=== PATIENT | female | born 1985 | race Caucasian/White ===

== ENCOUNTER 2018-05-23 22:45 | Emergency (ER) | payer MEDICAID ==
[~2018-05-23] VITALS: Ht 160 cm; Wt 55.3 kg
[2018-05-23 22:50] VITALS: BP_SYST 135
[2018-05-23] MEDS ORDERED: NACL 0.9% 1,000 ML IV ONE (22:50)
[2018-05-23] MEDS ORDERED: MORPHINE 4 MG/ML INJ. SYRINGE IVP ONE (23:00)
[2018-05-23] MEDS ORDERED: ONDANSETRON HCL 4 MG/2 ML VIAL IVP ONE (23:00)
[2018-05-23 23:14] LABS: BILIRUBIN,URINE NEGATIVE (NEGATIVE); BLOOD, URINE NEGATIVE (NEGATIVE); CLARITY/URINE HAZY (CLEAR); COLOR,URINE YELLOW (YELLOW); GLUCOSE,URINE NEGATIVE (NEGATIVE); KETONES,URINE NEGATIVE (NEGATIVE); LEUKOCYTE ESTERASE ,URINE NEGATIVE (NEGATIVE); NITRITE, URINE NEGATIVE (NEGATIVE); PH,URINE 8.5 (5.0-8.0); PROTEIN URINE NEGATIVE (NEGATIVE)
[2018-05-23 23:49] LABS: BASOPHILS % (AUTO) 0.3 % (0.0-2.0); EOSINOPHILS # (AUTO) 0.1 K/uL (0.0-0.4); EOSINOPHILS % (AUTO) 0.8 % (0.0-4.0); HEMATOCRIT 37.1 % (36-48); HEMOGLOBIN 11.9 g/dL (12.0-16.0); LYMPHOCYTES # (AUTO) 1.7 K/uL (1.0-5.5); LYMPHOCYTES % (AUTO) 13.9 % (20.5-51.5); MEAN CORPUSCULAR HEMOGLOBIN 26 pg (27-31); MEAN CORPUSCULAR HGB CONC 32 % (32-36); MEAN CORPUSCULAR VOLUME 81 fL (79.0-98.0); MONOCYTES # (AUTO) 0.9 K/uL (0.0-1.0); MONOCYTES % (AUTO) 7.6 % (1.7-9.3); NEUTROPHILS # (AUTO) 9.2 K/uL (1.8-7.7); NEUTROPHILS % (AUTO) 77.4 % (40.0-70.0); PLATELET COUNT (AUTO) 243 K/uL (130-430); RED BLOOD CELL COUNT(AUTO) 4.58 MIL/uL (4.2-6.2); RED CELL DISTRIBUTION WIDTH 12.8 % (9.0-15.0); WHITE BLOOD COUNT (AUTO) 11.9 K/uL (4.8-10.8)
[2018-05-24 00:01] LABS: PROTHROMBIN TIME 10.4 SECS (9.5-12.5)
[2018-05-24 00:15] LABS: ALBUMIN 3.6 g/dL (3.4-4.8); CREATININE 0.6 mg/dL (0.55-1.30); POTASSIUM 3.8 mmol/L (3.5-5.1); TOTAL BILIRUBIN 0.3 mg/dL (0.0-1.0)
[2018-05-24 00:28] VITALS: BP_SYST 135
[2018-05-24 00:33] LABS: CALCIUM 8.8 mg/dL (8.4-11.0)
== END 2018-05-24 00:27 | disposition home or self-care (01) ==
LOC: SED 22:45
DX: N83.202 Unspecified ovarian cyst, left side (principal); R10.2 Pelvic and perineal pain
CPT/HCPCS: 36415; 71045; 76830; 76857; 80053; 81003; 81025; 82150; 83605; 83690; 84702; 85025; 85610; 85730; 87040; 96374; 96375; 99284; J2270; J2405; J7030

== ENCOUNTER 2018-12-29 11:56 | Emergency (ER) | payer MEDICAID ==
[~2018-12-29] VITALS: Ht 160 cm; Wt 59.0 kg
[2018-12-29 12:19] VITALS: BP_SYST 116
[2018-12-29 13:41] LABS: BASOPHILS % (AUTO) 0.2 % (0.0-2.0); EOSINOPHILS # (AUTO) 0.2 K/uL (0.0-0.4); EOSINOPHILS % (AUTO) 1.6 % (0.0-4.0); HEMATOCRIT 37.8 % (36-48); HEMOGLOBIN 12.5 g/dL (12.0-16.0); LYMPHOCYTES % (AUTO) 9.9 % (20.5-51.5); MEAN CORPUSCULAR HEMOGLOBIN 29 pg (27-31); MEAN CORPUSCULAR HGB CONC 33 % (32-36); MEAN CORPUSCULAR VOLUME 88 fL (79.0-98.0); MONOCYTES # (AUTO) 0.7 K/uL (0.0-1.0); MONOCYTES % (AUTO) 6.3 % (1.7-9.3); NEUTROPHILS # (AUTO) 8.7 K/uL (1.8-7.7); PLATELET COUNT (AUTO) 230 K/uL (130-430); RED BLOOD CELL COUNT(AUTO) 4.32 MIL/uL (4.2-6.2); RED CELL DISTRIBUTION WIDTH 14.2 % (9.0-15.0); WHITE BLOOD COUNT (AUTO) 10.6 K/uL (4.8-10.8)
--- NOTE | 2018-12-29 14:03 | NUR ---
Patient to ER bed 6 to gown for evaluation. Side rails up. Report given to Nehemiah CHEW.
[2018-12-29 14:07] LABS: BILIRUBIN,URINE NEGATIVE (NEGATIVE); BLOOD, URINE NEGATIVE (NEGATIVE); CLARITY/URINE CLEAR (CLEAR); COLOR,URINE YELLOW (YELLOW); GLUCOSE,URINE NEGATIVE (NEGATIVE); KETONES,URINE NEGATIVE (NEGATIVE); LEUKOCYTE ESTERASE ,URINE NEGATIVE (NEGATIVE); NITRITE, URINE NEGATIVE (NEGATIVE); PROTEIN URINE NEGATIVE (NEGATIVE); UROBILINOGEN,URINE 0.2 (0.2-1.0)
[2018-12-29 14:08] LABS: CALCIUM 9.2 mg/dL (8.4-11.0); CREATININE 0.58 mg/dL (0.55-1.30); POTASSIUM 4.2 mmol/L (3.5-5.1)
[2018-12-29 14:16] LABS: TOTAL BILIRUBIN 0.5 mg/dL (0.0-1.0)
--- NOTE | 2018-12-29 14:20 | NUR ---
Pt presents to ED c/o pelvic pain.Pt has no acute distress noted denies constipation,nausea or vomiting.
--- NOTE | 2018-12-29 14:25 | NUR ---
ER at bedside examining patient.
--- NOTE | 2018-12-29 14:45 | NUR ---
Patient transported to radiology via ambulated, accompanied by US staff.
--- NOTE | 2018-12-29 14:59 | NUR ---
Returned from radiology, back to [facility].
--- NOTE | 2018-12-29 15:42 | NUR ---
Pt medicated tolerated well.
[2018-12-29] MEDS ORDERED: IBUPROFEN 600 MG TABLET PO ONE (15:45)
[2018-12-29] MEDS ORDERED: MAGNESIUM CITRATE 300 ML ORAL SOLUTION PO ONE (15:45)
[2018-12-29 16:15] VITALS: BP_SYST 118
--- NOTE | 2018-12-29 16:15 | NUR ---
Patient given written and verbal discharge instructions and verbalizes understanding. ER MD discussed with patient the results and treatment provided. Patient in stable condition. ID arm band removed. Rx of MOTRIN given. Patient educated on pain management and to follow up with PMD. Pain Scale 2. Opportunity for questions provided and answered. Medication side effect fact sheet provided.
== END 2018-12-29 16:15 | disposition home or self-care (01) ==
LOC: SED 11:56
DX: K59.00 Constipation, unspecified (principal); R03.0 Elevated blood-pressure reading, without diagnosis of hypertension
CPT/HCPCS: 36415; 74018; 76830-TC; 76857; 80053; 81003; 84702-TC; 85025; 86900; 86901; 99284

== ENCOUNTER 2019-11-18 19:22 | Emergency (ER) | payer MEDICAID ==
[~2019-11-18] VITALS: Ht 160 cm; Wt 70.3 kg
[2019-11-18 19:25] VITALS: BP_SYST 131
--- NOTE | 2019-11-18 19:25 | NUR ---
PT TO REMAIN IN ER LOBBY UNTIL ER BED IS AVAILABLE.
--- NOTE | 2019-11-18 19:30 | NUR ---
PT AAO AND AMBULATORY C/O WORSENING PELVIC X 1 MONTH. PT REPORTS THAT PAIN BECAME ACUTE TODAY AND REPORTS 7/10 PAIN SCALE. PT WAS RECENTLY DIAGNOSED WITH CYST ON CERVIX. PT HAD AN APPOINTMENT FOR FOLLOW UP BUT SPECIALIST CANCELLED LAST MINUTE ACCORDING TO PT.
[2019-11-18 21:53] LABS: BASOPHILS % (AUTO) 0.3 % (0.0-2.0); EOSINOPHILS # (AUTO) 0.1 K/uL (0.0-0.4); EOSINOPHILS % (AUTO) 0.4 % (0.0-4.0); HEMATOCRIT 37.6 % (36-48); HEMOGLOBIN 12.4 g/dL (12.0-16.0); LYMPHOCYTES % (AUTO) 7.1 % (20.5-51.5); MEAN CORPUSCULAR HEMOGLOBIN 29 pg (27-31); MEAN CORPUSCULAR HGB CONC 33 % (32-36); MEAN CORPUSCULAR VOLUME 87 fL (79.0-98.0); MONOCYTES # (AUTO) 0.8 K/uL (0.0-1.0); MONOCYTES % (AUTO) 5.5 % (1.7-9.3); NEUTROPHILS % (AUTO) 86.7 % (40.0-70.0); PLATELET COUNT (AUTO) 268 K/uL (130-430); RED BLOOD CELL COUNT(AUTO) 4.33 MIL/uL (4.2-6.2); RED CELL DISTRIBUTION WIDTH 14.2 % (9.0-15.0); WHITE BLOOD COUNT (AUTO) 13.8 K/uL (4.8-10.8)
[2019-11-18 22:12] LABS: CALCIUM 9.3 mg/dL (8.4-11.0); CREATININE 0.68 mg/dL (0.55-1.30); POTASSIUM 4.4 mmol/L (3.5-5.1)
[2019-11-18 22:17] LABS: BILIRUBIN,URINE NEGATIVE (NEGATIVE); CLARITY/URINE CLEAR (CLEAR); COLOR,URINE YELLOW (YELLOW); GLUCOSE,URINE NEGATIVE (NEGATIVE); KETONES,URINE TRACE (NEGATIVE); LEUKOCYTE ESTERASE ,URINE NEGATIVE (NEGATIVE); NITRITE, URINE NEGATIVE (NEGATIVE); PH,URINE 6.5 (5.0-8.0); PROTEIN URINE NEGATIVE (NEGATIVE); UROBILINOGEN,URINE 0.2 (0.2-1.0)
[2019-11-18 22:23] LABS: ALBUMIN 4.1 g/dL (3.4-4.8); TOTAL BILIRUBIN 0.6 mg/dL (0.0-1.0)
[2019-11-18 22:26] LABS: BLOOD, URINE TRACE (NEGATIVE)
[2019-11-18 22:31] LABS: BACTERIA,URINE FEW /HPF (None Seen); WBC,URINE 0-3 /HPF (0-3)
--- NOTE | 2019-11-18 23:45 | NUR ---
Patient to ER bed 2 to gown for evaluation. Side rails up. Report given to AUGUST.
--- NOTE | 2019-11-18 23:56 | NUR ---
Patient came to ER. C/O Pelvic pain x 1 day. Patient states "started lower abdominal and pelvic area since yesterday, on and off pain. " Hx Ovarian Cyst x 1 year
[2019-11-19] MEDS ORDERED: cefTRIAXone 250 MG VIAL IM ONE (01:15)
--- NOTE | 2019-11-19 01:16 | NUR ---
Pelvic exam performed by Dr. Heck with NAINA Morrissey at bedside for entire examination. Patient tolerated procedure well. Patient assisted to position of comfort after examination.
[2019-11-19 01:21] LABS: BARBITURATE, URINE NEGATIVE (NEG <=200); BENZODIAZEPINE, URINE NEGATIVE (NEG <=150); CANNABINOID, URINE NEGATIVE (NEG <=50); COCAINE, URINE NEGATIVE (NEG <=150); METHAMPHETAMINES SCREEN,URINE NEGATIVE (NEG <=500); OPIATE, URINE POSITIVE (NEG <=100); PHENCYCLIDINE SCREEN,URINE NEGATIVE (NEG <=25); UR TRICYCLIC ANTIDEPRESSANTS NEGATIVE (NEG <=300); URINE AMPHETAMINE NEGATIVE (NEG <=500); URINE METHADONE NEGATIVE (NEG <=200); URINE OXYCODONE SCREEN NEGATIVE (NEG <=100); URINE PROPOXYPHENE SCREEN NEGATIVE (NEG <=300)
[2019-11-19] MEDS ORDERED: LIDOCAINE 1%, 20 ML MDV 20 ML ONE (01:42)
[2019-11-19 02:43] VITALS: BP_SYST 131
--- NOTE | 2019-11-19 02:43 | NUR ---
Patient given written and verbal discharge instructions and verbalizes understanding. ER MD discussed with patient the results and treatment provided. Patient in stable condition. ID arm band removed. Rx of Doxycycline, Flagy and Motrin given. Patient educated on pain management and to follow up with PMD. Pain Scale 1/10. Opportunity for questions provided and answered. Medication side effect fact sheet provided.
== END 2019-11-19 02:43 | disposition home or self-care (01) ==
LOC: SED 19:22
DX: N73.9 Female pelvic inflammatory disease, unspecified (principal)
CPT/HCPCS: 36415; 74176; 76856; 80053; 80307; 81000; 81025; 83690; 84702; 85025; 96372; 99285; J0696; J2001